=== PATIENT | female | born 1930 | race Caucasian/White ===

== ENCOUNTER 2017-01-01 19:59 | Emergency (ER) | payer MEDICARE ==
--- NOTE | 2017-01-01 20:09 | ER Document Report ---
ED Medical Screen (RME) - General Stated Complaint: FALL,BUMP ON HEAD Notes: patient is a 86 year old female. was walking in a parking lot, felt dizzy, fell hit her head, LOC for 30 seconds, with hematoma on her head. Admits to headache. not on blood thinners. 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 A comprehensive ED assessment and evaluation of the patient, analysis of test results and completion of the medical decision making process will be conducted by additional ED providers. Physical Exam - Vital signs Vitals: Temp Pulse Resp BP Pulse Ox 97.7 F 84 19 178/71 H 98 01/01/17 20:06 01/01/17 20:06 01/01/17 20:06 01/01/17 20:06 01/01/17 20:06 Course - Vital Signs Vital signs: Temp Pulse Resp BP Pulse Ox 97.7 F 84 19 178/71 H 98 01/01/17 20:06 01/01/17 20:06 01/01/17 20:06 01/01/17 20:06 01/01/17 20:06
--- NOTE | 2017-01-01 20:33 | EKG REPORT ---
SEVERITY:- ABNORMAL ECG - SINUS RHYTHM PROBABLE LEFT ATRIAL ABNORMALITY RIGHT BUNDLE BRANCH BLOCK : Confirmed by: Dayanara Vanegas MD 01-Jan-2017 20:32:12
--- NOTE | 2017-01-01 22:40 | ER Document Report ---
ED Syncope and Near Syncope - General Chief Complaint: Fall Injury Stated Complaint: FALL,BUMP ON HEAD Time Seen by Provider: 01/01/17 20:05 Mode of Arrival: Ambulatory Information source: Patient Notes: 86-year-old female that does not take anticoagulants, nondiabetic, nonhypertensive, felt dizzy after walking from [place] to the car. She's had similar dizziness in the past. She had a syncopal episode and fell backwards injuring her left posterior scalp. Denies neck pain, chest pain, shortness of breath, abdominal pain. She did have a small skin tear to the left elbow but does not think anything is broken. Mild dizziness at this time. TRAVEL OUTSIDE OF THE [place] IN LAST 30 DAYS: No - Related Data Allergies/Adverse Reactions: No Known Allergies Allergy (Unverified 01/01/17 20:12) Past Medical History - General Information source: Patient - Social History Smoking Status: Never Smoker Chew tobacco use (# tins/day): No Frequency of alcohol use: None Drug Abuse: None Lives with: Family Family History: Reviewed & Not Pertinent Patient has suicidal ideation: No Patient has homicidal ideation: No - Medical History Medical History: Negative Renal/ Medical History: Denies: Hx Peritoneal Dialysis Surgical Hx: Negative Review of Systems - Review of Systems Constitutional: No symptoms reported EENT: No symptoms reported Cardiovascular: No symptoms reported Respiratory: No symptoms reported Gastrointestinal: No symptoms reported Genitourinary: No symptoms reported Female Genitourinary: No symptoms reported Musculoskeletal: No symptoms reported Skin: No symptoms reported Hematologic/Lymphatic: No symptoms reported Neurological/Psychological: See HPI Physical Exam - Vital signs Vitals: Temp Pulse Resp BP Pulse Ox 97.7 F 84 19 178/71 H 98 01/01/17 20:06 01/01/17 20:06 01/01/17 20:06 01/01/17 20:06 01/01/17 20:06 Interpretation: Normal, Hypertensive - General General appearance: Appears well, Alert In distress: None - HEENT Head: Normocephalic, Tenderness - left posterior occiput hematoma. 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 Tympanic membrane: Normal Mouth/Lips: Normal Mucous membranes: Normal Pharynx: Normal Neck: Supple - non tender - Respiratory Respiratory status: No respiratory distress Chest status: Nontender Breath sounds: Normal Chest palpation: Normal - Cardiovascular Rhythm: Regular Heart sounds: Normal auscultation Murmur: No - Abdominal Inspection: Normal Distension: No distension Bowel sounds: Normal Tenderness: Nontender. No: Tender Organomegaly: No organomegaly - Back Back: Normal, Nontender. No: Tender - Extremities General upper extremity: Normal inspection, Nontender, Normal color, Normal ROM , Normal temperature General lower extremity: Normal inspection, Nontender, Normal color, Normal ROM , Normal temperature, Normal weight bearing. No: Saira's sign - Neurological Neuro grossly intact: Yes Cognition: Normal Orientation: AAOx4 [place] Coma Scale Eye Opening: Spontaneous [place] Coma Scale Verbal: Oriented [place] Coma Scale Motor: Obeys Commands Natalia Coma Scale Total: 15 Speech: Normal Motor strength normal: LUE, RUE, LLE, RLE Sensory: Normal - Psychological Associated symptoms: Normal affect, Normal mood - Skin Skin Temperature: Warm Skin Moisture: Dry Skin Color: Normal Skin irregularity: Laceration - 1 cm skin flap left lateral elbow, FROM, non tender bone Course - Re-evaluation Re-evalutation: 01/01/17 22:39 consult jaden aquino, get basic met panel and cbc only, CT and cervical spine CT are negative except for soft tissue hematoma in the left posterior occipital scalp 01/01/17 22:48 Patient states that she has similar dizziness in the past and her daughter states she has the meclizine at home for her. She is very mild dizziness at that this time I will give her meclizine 12.5 mg and they are drawing a CBC and basic metabolic that about panel at this time. They will also wash her left elbow and put a Tegaderm dressing over the small skin tear. 01/01/17 23:45 The 12.5 mg meclizine helped and the dizziness is gone, the of lab work and EKG given to patient. Copy of CT scan given to patient. 01/01/17 23:46 dr stanley OK with sending pt home with labwork results. Pt is NOT on any anticoagulants - Vital Signs Vital signs: Temp Pulse Resp BP Pulse Ox 97.8 F 80 16 130/81 H 98 01/02/17 00:05 01/02/17 00:05 01/02/17 00:05 01/02/17 00:05 01/02/17 00:05 - Laboratory Result Diagrams: 01/01/17 22:45 01/01/17 22:45 Laboratory results interpreted by me: 01/01/17 01/01/17 22:45 22:45 RBC 3.67 L Hgb 11.9 L Hct 35.5 L RDW 14.2 H Seg Neutrophils % 79.6 H Lymphocytes % 10.2 L Chloride 110 H BUN 24 H Est GFR (Non-Af Amer) 53 L Glucose 187 H Discharge - Discharge Clinical Impression: Dizziness Head injury Qualifiers: Encounter type: initial encounter Qualified Code(s): S09.90XA - Unspecified injury of head, initial encounter Scalp hematoma Qualifiers: Encounter type: initial encounter Qualified Code(s): S00.03XA - Contusion of scalp, initial encounter Fall Qualifiers: Encounter type: initial encounter Qualified Code(s): W19.XXXA - Unspecified fall, initial encounter Condition: Good Disposition: HOME, SELF-CARE Instructions: Head Injury Precautions ([facility]), Scalp Hematoma ([facility]), Dizziness ( [facility]), Meclizine ([facility]) Additional Instructions: 12.5 meclizine for dizziness return to er any concerns, worsening symptoms see your doctor at home when you return Please complete the patient satisfaction survey if you get one, and return it.. If you do not receive a survey, then you can go to the [facility] website, [email or web address] and place your comments about your very good care. Thank you very much. It was a pleasure being your medical provider today. Prescriptions: Meclizine HCl 12.5 mg PO Q6HP PRN #30 tablet PRN Reason:
[2017-01-01] MEDS ORDERED: MECLIZINE HCL 12.5 MG TABLET PO ONE (22:47)
[2017-01-01] MEDS ORDERED: MECLIZINE HCL 25 MG TABLET PO ONE (23:07)
[2017-01-01 23:17] LABS: ABSOLUTE EOSINOPHILS # (AUTO) 0.1 10^3/uL (0.0-0.6); ABSOLUTE LYMPHOCYTES (AUTO) 0.8 10^3/uL (0.5-4.7); ABSOLUTE MONOCYTES (AUTO) 0.7 10^3/uL (0.1-1.4); ABSOLUTE NEUT (AUTO) 6.5 10^3/uL (1.7-8.2); BASOPHILS % (AUTO) 0.5 % (0-2); EOSINOPHILS % (AUTO) 1.3 % (0-6); HEMATOCRIT 35.5 % (36.0-47.0); HEMOGLOBIN 11.9 g/dL (12.0-15.5); HGB HCT DIFFERENCE 0.2; LYMPHOCYTES % (AUTO) 10.2 % (13-45); MEAN CORPUSCULAR HEMOGLOBIN 32.5 pg (27.0-33.4); MEAN CORPUSCULAR HGB CONC 33.6 g/dL (32.0-36.0); MEAN CORPUSCULAR VOLUME 97 fl (80-97); MONOCYTES % (AUTO) 8.4 % (3-13); RED BLOOD COUNT 3.67 10^6/uL (3.72-5.28); RED CELL DISTRIBUTION WIDTH 14.2 % (11.5-14.0); SEGMENTED NEUTROPHILS % (AUTO) 79.6 % (42-78); WHITE BLOOD COUNT 8.2 10^3/uL (4.0-10.5)
[2017-01-01 23:24] LABS: ANION GAP 11 (5-19); BLOOD UREA NITROGEN 24 mg/dL (7-20); CALCIUM 9.7 mg/dL (8.4-10.2); CARBON DIOXIDE 23 mmol/L (22-30); CHLORIDE 110 mmol/L (98-107); CREATININE RESULT 0.99 mg/dL (0.52-1.25); GLUCOSE 187 mg/dL (75-110); POTASSIUM 3.7 mmol/L (3.6-5.0); SODIUM 144.1 mmol/L (137-145)
[2017-01-02 00:15] VITALS: BP 130/81
== END 2017-01-02 00:10 | disposition home or self-care (01) ==
LOC: ER 19:59
DX: R42 Dizziness and giddiness (principal); S09.90XA Unspecified injury of head, initial encounter; S51.012A Laceration without foreign body of left elbow, initial encounter; R55 Syncope and collapse; W18.39XA Other fall on same level, initial encounter; Y92.481 Parking lot as the place of occurrence of the external cause
CPT/HCPCS: 93005; 99284; 36415; 85025; 80048; 70450; 72125; 93010; A9270